=== PATIENT | male | born 1965 | race Caucasian/White ===

== ENCOUNTER 2025-03-31 18:05 | Emergency (ER) | payer MEDICARE, OTHER ==
[~2025-03-31] VITALS: Ht 175.3 cm; Wt 102.3 kg
[~2025-03-31 18:05] MED LIST: FERR325T27 PO; FURO40TA6 PO; PANT-31 PO; SPIR-37 PO
[2025-03-31 18:17] VITALS: BP 103/68; PULSE 94; RESP 18; TEMP 98.8; O2SAT 99
[2025-03-31 18:18] LABS: COVID AG,FIA SOURCE NASAL SWAB
[2025-03-31 18:40] LABS: SARS-COV2 (COVID) ANTIGEN,FIA Negative (Negative)
[2025-03-31 18:41] LABS: INFLUENZA TYPE A NEGATIVE FOR TYPE A (NEGATIVE); INFLUENZA TYPE B NEGATIVE FOR TYPE B (NEGATIVE)
[2025-03-31] MEDS: BENZONATATE 100 MG CAPSULE PO ONE (19:12)
[2025-03-31] MEDS: ACETAMINOPHEN 500 MG TABLET PO ONE (19:12)
[2025-03-31] MEDS: IBUPROFEN 600 MG TABLET PO ONE (19:12)
[2025-03-31] MEDS ORDERED: BENZ-227 PO (19:22)
[2025-03-31] MEDS ORDERED: ACET-2247 PO (19:22)
[2025-03-31] MEDS ORDERED: IBUP-1492 PO (19:22)
== END 2025-03-31 20:03 | disposition home or self-care (01) ==
LOC: EMS 18:07
DX: J98.8 Other specified respiratory disorders (principal); B97.89 Other viral agents as the cause of diseases classified elsewhere; Z98.890 Other specified postprocedural states; Z79.899 Other long term (current) drug therapy; Z20.822 Contact with and (suspected) exposure to COVID-19
CPT/HCPCS: 87804; 99284; Z7502; Z7610